=== PATIENT | female | born 1955 | race Hispanic/Latino ===

== ENCOUNTER 2019-05-15 14:45 | Observation (INO) | payer SELFPAY ==
--- NOTE | 2019-05-15 16:46 | ER ---
Nurse's Notes [facility] Name: Paulina Roy Age: 64 yrs Sex: Female : 1955 Arrival Date: 05/15/2019 Time: 14:48 Bed 18 Private MD: Diagnosis: Dizziness and giddiness;Other chest pain;Type 2 diabetes mellitus Presentation: 05/15 15:08 Presenting complaint: Sent by Dr. Bains for dizziness, dyspnea, chest pain, and abnormal hb EKG. Pt reports intermittent dizziness x 3 days. Transition of care: patient was not received from another setting of care. Onset of symptoms was May 13, 2019. Initial Sepsis Screen: Does the patient meet any 2 criteria? No. Patient's initial sepsis screen is negative. Does the patient have a suspected source of infection? No. Patient's initial sepsis screen is negative. Care prior to arrival: None. 15:08 Method Of Arrival: Ambulatory hb 15:08 Acuity: PABLO 3 hb 17:51 Risk Assessment: Do you want to hurt yourself or someone else? Patient reports no mg2 desire to harm self or others. Historical: - Allergies: 15:11 No Known Allergies; hb - Home Meds: 15:11 glimepiride Oral [Active]; Xigduo XR oral oral [Active]; Hydrochlorothiazide Oral hb [Active]; Lisinopril Oral [Active]; - PMHx: 15:11 Diabetes - NIDDM; Hypertension; hb - PSHx: 15:11 None; hb - Immunization history:: Adult Immunizations up to date. - Social history:: Smoking status: Patient/guardian denies using tobacco. - Ebola Screening: : No symptoms or risks identified at this time. - Family history:: not pertinent. Screenin:50 Abuse screen: Denies threats or abuse. Denies injuries from another. Nutritional mg2 screening: No deficits noted. Tuberculosis screening: No symptoms or risk factors identified. Fall Risk IV access (20 points). Assessment: 17:49 General: Appears in no apparent distress. comfortable, Behavior is calm, cooperative. mg2 Pain: Complains of pain in chest Pain radiates to head, abdomen, right leg and left leg Pain currently is 2 out of 10 on a pain scale. Quality of pain is described as aching, Pain began gradually, Is intermittent. Neuro: Level of Consciousness is awake, alert, obeys commands, Oriented to person, place, time, situation. Cardiovascular: Capillary refill < 3 seconds Patient's skin is warm and dry. Cardiovascular: Reports chest pain. Respiratory: Airway is patent Respiratory effort is even, unlabored, Respiratory pattern is regular, symmetrical. GI: No signs and/or symptoms were reported involving the gastrointestinal system. : No signs and/or symptoms were reported regarding the genitourinary system. EENT: No signs and/or symptoms were reported regarding the EENT system. Derm: Skin is intact, is healthy with good turgor, Skin is pink, warm \T\ dry. normal. Musculoskeletal: Circulation, motion, and sensation intact. Capillary refill < 3 seconds. Vital Signs: 15:09 BP 94 / 65; Pulse 97; Resp 16; Temp 98.4(TE); Pulse Ox 97% on R/A; Weight 63.5 kg; hb Height 5 ft. 4 in. (162.56 cm); Pain 0/10; 17:30 BP 149 / 82; Pulse 96; Resp 18; Pulse Ox 100% 0 lpm ; mg2 18:18 BP 114 / 72; Pulse 99; Resp 18; Temp 98.4; Pulse Ox 100% on R/A; mg2 15:09 Body Mass Index 24.03 (63.50 kg, 162.56 cm) hb ED Course: 14:48 Patient arrived in ED. rg4 15:09 Triage completed. hb 15:09 Arm band placed on right wrist. hb 15:21 EKG completed in triage. Results shown to MD. hb 16:13 Sen Francisco MD is Attending Physician. anya 16:28 Rainer Merino, AURELIANO is Primary Nurse. mg2 16:43 Soumya Quintanilla MD is Hospitalizing Provider. anya 17:02 XRAY Chest (1 view) In Process Unspecified. EDMS 17:51 Patient has correct armband on for positive identification. insurance office supervisor on. Pulse mg2 ox on. NIBP on. Door closed. Warm blanket given. 17:51 No provider procedures requiring assistance completed. Inserted saline lock: 20 gauge mg2 in right forearm, using aseptic technique. Blood collected. 17:57 Patient admitted, IV remains in place. mg2 Administered Medications: 16:54 Drug: Pepcid 20 mg Route: IVP; Site: right forearm; mg2 17:25 Follow up: Response: No adverse reaction mg2 18:00 Follow up: Response: No adverse reaction; Marked relief of symptoms mg2 18:35 Not Given (patient already in the floor): NS 0.9% 1000 ml IV at 1 bolus Per protocol; mg2 1000 mL bolus 18:35 Not Given (patient already in the floor): Insulin Regular Human 10 units IVP once mg2 18:35 Not Given (patient already in the floor): NS 0.9% 1000 ml IV at 125 ml/hr continuous mg2 Outcome: 16:44 Decision to Hospitalize by Provider. anya 18:19 Admitted to Med/surg accompanied by tech, via wheelchair, room 225, with chart, Report mg2 called to AURELIANO Calvo 18:19 Condition: stable 18:19 Instructed on the need for admit, Demonstrated understanding of instructions. 18:36 Patient left the ED. mg2 Signatures: Dispatcher [employer] EDSen Wood MD MD cha Baxter, Heather, Bree Jones RN rg4 Rainer Merino RN RN mg2 Corrections: (The following items were deleted from the chart) 18:19 18:10 BP 149 / 82; Pulse 96bpm; Resp 18bpm; Pulse Ox 100% 0 lpm; mg2 mg2
--- NOTE | 2019-05-15 16:46 | EDPHYS ---
Physician Documentation [facility] Name: Paulina Roy Age: 64 yrs Sex: Female : 1955 Arrival Date: 05/15/2019 Time: 14:48 Bed 18 Private MD: LYNDSEY Physician Sen Francisco HPI: 05/15 16:40 This 64 yrs old Female presents to ER via Ambulatory with complaints of anya Dizziness and chest pain. 16:40 The patient presents with dizziness. Modifying factors: The symptoms are alleviated by anya nothing, the symptoms are aggravated by nothing. Historical: - Allergies: 15:11 No Known Allergies; hb - Home Meds: 15:11 glimepiride Oral [Active]; Xigduo XR oral oral [Active]; Hydrochlorothiazide Oral hb [Active]; Lisinopril Oral [Active]; - PMHx: 15:11 Diabetes - NIDDM; Hypertension; hb - PSHx: 15:11 None; hb - Immunization history:: Adult Immunizations up to date. - Social history:: Smoking status: Patient/guardian denies using tobacco. - Ebola Screening: : No symptoms or risks identified at this time. - Family history:: not pertinent. ROS: 16:40 Constitutional: Negative for fever, chills, and weight loss, Eyes: Negative for injury, anya pain, redness, and discharge, ENT: Negative for injury, pain, and discharge, Neck: Negative for injury, pain, and swelling, Respiratory: Negative for shortness of breath, cough, wheezing, and pleuritic chest pain, Abdomen/GI: Negative for abdominal pain, nausea, vomiting, diarrhea, and constipation, Back: Negative for injury and pain, : Negative for injury, bleeding, discharge, and swelling, MS/Extremity: Negative for injury and deformity, Skin: Negative for injury, rash, and discoloration, Neuro: Negative for headache, weakness, numbness, tingling, and seizure, Psych: Negative for depression, anxiety, suicide ideation, homicidal ideation, and hallucinations, Allergy/Immunology: Negative for hives, rash, and allergies, Endocrine: Negative for neck swelling, polydipsia, polyuria, polyphagia, and marked weight changes, Hematologic/Lymphatic: Negative for swollen nodes, abnormal bleeding, and unusual bruising. 16:40 Cardiovascular: Positive for chest pain, of the chest. 16:40 Neuro: Positive for dizziness. Exam: 16:40 Constitutional: This is a well developed, well nourished patient who is awake, alert, anya and in no acute distress. Head/Face: Normocephalic, atraumatic. Eyes: Pupils equal round and reactive to light, extra-ocular motions intact. Lids and lashes normal. Conjunctiva and sclera are non-icteric and not injected. Cornea within normal limits. Periorbital areas with no swelling, redness, or edema. ENT: Nares patent. No nasal discharge, no septal abnormalities noted. Tympanic membranes are normal and external auditory canals are clear. Oropharynx with no redness, swelling, or masses, exudates, or evidence of obstruction, uvula midline. Mucous membranes moist. Neck: Trachea midline, no thyromegaly or masses palpated, and no cervical lymphadenopathy. Supple, full range of motion without nuchal rigidity, or vertebral point tenderness. No Meningismus. Chest/axilla: Normal chest wall appearance and motion. Nontender with no deformity. No lesions are appreciated. Cardiovascular: Regular rate and rhythm with a normal S1 and S2. No gallops, murmurs, or rubs. Normal PMI, no JVD. No pulse deficits. Respiratory: Lungs have equal breath sounds bilaterally, clear to auscultation and percussion. No rales, rhonchi or wheezes noted. No increased work of breathing, no retractions or nasal flaring. Abdomen/GI: Soft, non-tender, with normal bowel sounds. No distension or tympany. No guarding or rebound. No evidence of tenderness throughout. Back: No spinal tenderness. No costovertebral tenderness. Full range of motion. Female : Normal external genitalia. Skin: Warm, dry with normal turgor. Normal color with no rashes, no lesions, and no evidence of cellulitis. MS/ Extremity: Pulses equal, no cyanosis. Neurovascular intact. Full, normal range of motion. Neuro: Awake and alert, GCS 15, oriented to person, place, time, and situation. Cranial nerves II-XII grossly intact. Motor strength 5/5 in all extremities. Sensory grossly intact. Cerebellar exam normal. Normal gait. Psych: Awake, alert, with orientation to person, place and time. Behavior, mood, and affect are within normal limits. 16:40 Musculoskeletal/extremity: DVT Exam: No signs of deep vein thrombosis. no pain, no swelling, no tenderness, negative Homans' sign noted on exam, no appreciated bluish discoloration, no erythema, no increased warmth. Vital Signs: 15:09 BP 94 / 65; Pulse 97; Resp 16; Temp 98.4(TE); Pulse Ox 97% on R/A; Weight 63.5 kg; hb Height 5 ft. 4 in. (162.56 cm); Pain 0/10; 17:30 BP 149 / 82; Pulse 96; Resp 18; Pulse Ox 100% 0 lpm ; mg2 18:18 BP 114 / 72; Pulse 99; Resp 18; Temp 98.4; Pulse Ox 100% on R/A; mg2 15:09 Body Mass Index 24.03 (63.50 kg, 162.56 cm) hb MDM: 16:13 Patient medically screened. [facility] 16:42 Data reviewed: vital signs, nurses notes, lab test result(s), EKG, radiologic studies, anya plain films. 05/15 16:31 Order name: Basic Metabolic Panel; Complete Time: 18:31 mg2 05/15 16:31 Order name: CBC with Diff; Complete Time: 17:52 mg2 05/15 16:31 Order name: LFT's; Complete Time: 18:31 mg2 05/15 16:31 Order name: Magnesium; Complete Time: 18:31 mg2 05/15 16:31 Order name: NT PRO-BNP; Complete Time: 18:31 mg2 05/15 16:31 Order name: PT-INR; Complete Time: 17:52 mg2 05/15 16:31 Order name: Troponin (emerg Dept Use Only); Complete Time: 18:31 mg2 05/15 16:31 Order name: XRAY Chest (1 view) mg2 05/15 16:40 Order name: Lipase; Complete Time: 17:52 anya 05/15 16:44 Order name: Urine Dipstick--Ancillary (enter results); Complete Time: 17:52 em1 05/15 16:31 Order name: EKG; Complete Time: 16:33 mg2 05/15 16:31 Order name: Cardiac monitoring; Complete Time: 16:34 mg2 05/15 16:31 Order name: EKG - Nurse/Tech; Complete Time: 16:34 mg2 05/15 16:31 Order name: IV Saline Lock; Complete Time: 16:44 mg2 05/15 16:31 Order name: Labs collected and sent; Complete Time: 16:44 mg2 05/15 16:31 Order name: O2 Per Protocol; Complete Time: 16:34 mg2 05/15 16:31 Order name: O2 Sat Monitoring; Complete Time: 16:34 mg2 05/15 16:40 Order name: Urine Dipstick-Ancillary (obtain specimen); Complete Time: 16:44 anya Administered Medications: 16:54 Drug: Pepcid 20 mg Route: IVP; Site: right forearm; mg2 17:25 Follow up: Response: No adverse reaction mg2 18:00 Follow up: Response: No adverse reaction; Marked relief of symptoms mg2 18:35 Not Given (patient already in the floor): NS 0.9% 1000 ml IV at 1 bolus Per protocol; mg2 1000 mL bolus 18:35 Not Given (patient already in the floor): Insulin Regular Human 10 units IVP once mg2 18:35 Not Given (patient already in the floor): NS 0.9% 1000 ml IV at 125 ml/hr continuous mg2 Disposition: 05/15/19 16:44 Hospitalization ordered by Soumya Quintanilla for Observation. Preliminary diagnosis are Dizziness and giddiness, Other chest pain, Type 2 diabetes mellitus. - Bed requested for Telemetry/MedSurg (observation). - Status is Observation. mg2 - Condition is Fair. - Problem is new. - Symptoms have improved. UTI on Admission? No Signatures: Dispatcher [employer] EDLA Sen Francisco MD MD cha Martinez, Eric em1 Ayde Daniel RN RN Rainer Merino RN RN mg2 Corrections: (The following items were deleted from the chart) 17:47 16:44 Hospitalization Ordered by Soumya Quintanilla MD for Observation. Preliminary diagnosis em1 is Dizziness and giddiness; Other chest pain; Type 2 diabetes mellitus. Bed requested for Telemetry/MedSurg (observation). Status is Observation. Condition is Fair. Problem is new. Symptoms have improved. UTI on Admission? No. anya 18:36 17:47 05/15/2019 16:44 Hospitalization Ordered by Soumya Quintanilla MD for Observation. mg2 Preliminary diagnosis is Dizziness and giddiness; Other chest pain; Type 2 diabetes mellitus. Bed requested for Telemetry/MedSurg (observation). Status is Observation. Condition is Fair. Problem is new. Symptoms have improved. UTI on Admission? No. em1
[2019-05-15] MEDS ORDERED: FAMOTIDINE 20 MG/2 ML VIAL IV ONE (16:47)
[2019-05-15 16:54] LABS: Absolute Lymphocytes (CBC) 1.3 K/uL (0.7-4.9); Basophils % 0.4 % (0-1.3); Lymphocytes % 15.5 % (15.3-44.8); MPV 8.6 fL (7.6-11.3); RBC Red Blood Cell Count 4.61 M/uL (3.86-4.86)
[2019-05-15 17:06] LABS: Protime INR 0.98
--- NOTE | 2019-05-15 17:07 | RAD REPORT ---
EXAM DESCRIPTION: RAD - Chest Single View - 05/15/2019 4:47 pm CLINICAL HISTORY: Chest pain COMPARISON: None. TECHNIQUE: AP portable chest image was obtained 1642 hours . FINDINGS: Lungs are clear. Heart and vasculature are normal. No measurable pleural effusion and no p neumothorax. No acute bony abnormality seen. No acute aortic findings suspected. IMPRESSION: No acute cardiopulmonary process.
[2019-05-15 17:14] LABS: Urine Blood NEGATIVE (NEG); Urine Glucose 2+ (NEG); Urine Protein NEGATIVE (NEG)
[2019-05-15 17:20] LABS: ALT/SGPT 20 U/L (12-78); AST/SGOT 10 U/L (15-37); Albumin 3.8 g/dL (3.4-5.0); Alkaline Phosphatase 85 U/L (45-117); BUN Blood Urea Nitrogen 44 mg/dL (7-18); Bicarbonate 18 mmol/L (21-32); Bilirubin Direct < 0.1 mg/dL (0-0.2); Bilirubin Total 0.5 mg/dL (0.2-1.0); Glucose Level 338 mg/dL (74-106); Magnesium 2.5 mg/dL (1.8-2.4); NT PRO-BNP 406 pg/mL (<125); Potassium 5.1 mmol/L (3.5-5.1); Protein, Total 8.7 g/dL (6.4-8.2); Sodium Level 128 mmol/L (136-145); Troponin (Emerg Dept Use Only) < 0.02 ng/mL (0.0-0.045)
[2019-05-15] MEDS ORDERED: ASPIRIN 81 MG CHEWABLE TABLET PO ONE (17:33)
--- NOTE | 2019-05-15 17:34 | EKG ---
Test Date: 2019-05-15 Test Time: 15:17:18 Door Glass Installer: JAQUAN MEASUREMENT RESULTS: Intervals: Rate: 102 WA: 154 QRSD: 146 QT: 396 QTc: 516 [place]: P: 56 WA: 154 QRS: -37 T: 120 INTERPRETIVE STATEMENTS: Sinus tachycardia Left axis deviation Left bundle branch block Abnormal ECG No previous ECG available for comparison Electronically Signed On 05-15-19 17:33:39 CDT by Amado Marie
--- NOTE | 2019-05-15 18:16 | P.HP ---
Certification for Inpatient Patient admitted to: Observation With expected LOS: <2 Midnights Practitioner: I am a practitioner with admitting privileges, knowledge of patient current condition, hospital course, and medical plan of care. Services: Services provided to patient in accordance with Admission requirements found in Title 42 Section 412.3 of the Code of Federal Regulations Patient History Date of Service: 05/15/19 Primary Care Provider: Dr. Zee Reason for admission: Chest pain History of Present Illness: This is a 64-year-old female with past medical history of hypertension, hyperlipidemia, anxiety and diabetes who presented with chest pain. Per patient , chest pain has been intermittent, for 3 days and has been progressively worsening. Now she has pain that starts in substernal area goes up to her face and down to her knees. She describes it as 5/10 pain. This pain is associated with dizziness, nausea and shortness of breath. Her family history is pertinent for a [place] in her brother at age 58. She was seen in her primary care physician's office and was told to come to the ER from there. In the ER, her blood pressure was 94/65, heart rate of 97, respirations of 16, afebrile at 98.4 and satting 97% on room air. Her BMI is 24.03. Her labs were pending but when they came back there were remarkable for sodium of 128 and blood sugars of 300+. Her lipase was also elevated in the 400s. In the ER, she was given Pepcid. Aspirin 325 mg was also ordered by me and was given to the patient along with metoprolol. At the time of my exam, in the ER, patient was alert oriented x3, in no acute distress. Her blood pressure was elevated as was her heart rate into the 130s. Allergies No Known Allergies Allergy (Unverified 05/15/19 18:06) Home medications list reviewed: Yes - Past Medical/Surgical History Diabetic: Yes -: Hypertension -: Hyperlipidemia -: Diabetes mellitus, type 2 - Family History Brother -: Heart disease ([place] at age 58, leading to ) Review of Systems 10-point ROS is otherwise unremarkable Physical Examination - Physical Exam General: Alert, In no apparent distress, Oriented x3 HEENT: Atraumatic, PERRLA, Mucous membr. moist/pink, EOMI, Sclerae nonicteric Neck: Supple, 2+ carotid pulse no bruit, No LAD, Without JVD or thyroid abnormality Respiratory: Clear to auscultation bilaterally, Normal air movement Cardiovascular: Regular rate/rhythm, Normal S1 S2 Gastrointestinal: Normal bowel sounds, No tenderness Musculoskeletal: No tenderness Integumentary: No rashes Neurological: Normal gait, Normal speech, Normal strength at 5/5 x4 extr, Normal tone, Normal affect Lymphatics: No axilla or inguinal lymphadenopathy - Studies Laboratory Data (last 24 hrs) 05/15/19 16:40: Lipase 452 H 05/15/19 16:40: PT 11.6, INR 0.98 05/15/19 16:40: WBC 8.3, Hgb 13.5, Hct 41.0, Plt Count 365 05/15/19 16:40: Sodium 128 L, Potassium 5.1, BUN 44 H, Creatinine 1.22, Glucose 338 H, Magnesium 2.5 H, Total Bilirubin 0.5, AST 10 L, ALT 20, Alkaline Phosphatase 85 Assessment and Plan - Problems (Diagnosis) (1) Chest pain Current Visit: Yes Status: Acute Plan: Heart score:3 Risk factors: Hypertension, hyperlipidemia, diabetes, family history of brother with [place] at age 58, age, gender -troponin negative x1, trend troponin -chest pain guidelines: Aspirin, Plavix, beta-laura, statin, lisinopril. -echo ordered, [place] -cardiology consulted, awaiting recommendations -morphine as needed for pain -nitro sublingual as needed Qualifiers: Chest pain type: unspecified Qualified Code(s): R07.9 - Chest pain, unspecified (2) Hyponatremia Current Visit: Yes Status: Acute Plan: Likely secondary to dehydration. -IV fluids, maintenance dose -monitor via labs (3) Hypertension Current Visit: No Status: Chronic Plan: We will resume home medications once reconciled Qualifiers: Hypertension type: essential hypertension Qualified Code(s): I10 - Essential (primary) hypertension (4) Hyperlipidemia Current Visit: No Status: Chronic Plan: Continue statin Qualifiers: Hyperlipidemia type: unspecified Qualified Code(s): E78.5 - Hyperlipidemia , unspecified (5) Diabetes mellitus Current Visit: No Status: Chronic Plan: Accu-Cheks and mild sliding scale insulin. Will monitor and adjust as needed Qualifiers: Diabetes mellitus type: type 2 Diabetes mellitus senior living insulin use: without senior living use Diabetes mellitus complication status: with hyperglycemia Qualified Code(s): E11.65 - Type 2 diabetes mellitus with hyperglycemia (6) Elevated lipase Current Visit: Yes Status: Acute Plan: Lipase in the 400s, patient not really complaining of any abdominal pain. Will trend lipase and if it continues to elevate, will get imaging. Doubt pancreatitis at this time but will continue to monitor. - Plan DVT prophylaxis: Aspirin/Plavix GI prophylaxis: Pepcid Diet: Heart healthy, NPO after midnight Disposition: Admit to floor with tele. Pending cardiology evaluation. Anticipate discharge home in the next 24 hr if cardiology evaluation is negative and clinical improvement. Discharge Plan: Home Plan to discharge in: 24 Hours - Advance Directives Does patient have a Living Will: No Does patient have a Durable POA for Healthcare: No Time Spent Managing Pts Care (In Minutes): 55
[2019-05-15] MEDS ORDERED: METOPROLOL TAR 50 MG TAB ONE (18:22)
[2019-05-15] MEDS ORDERED: ASPIRIN 81 MG CHEWABLE TABLET ONE (18:22)
[2019-05-15] MEDS: METOPROLOL TAR 50 MG TAB PO SCH (18:25)
[2019-05-15] MEDS ORDERED: MORPHINE 2 MG/ML SYR IV PRN (18:35)
[2019-05-15] MEDS ORDERED: ONDANSETRON 4 MG/2 ML VIAL IV PRN (18:35)
[2019-05-15] MEDS ORDERED: NITROGLYCERIN 0.4 MG/TAB SL PRN (18:35)
[2019-05-15] MEDS: NA CHLORIDE 0.9% 1,000 ML IV SCH ×2 (19:00→21:45)
[2019-05-15] MEDS ORDERED: GLUCAGON 1 MG/VIAL IM PRN (20:10)
[2019-05-15] MEDS ORDERED: D50W 25 GM/50 ML SYRINGE IV PRN (20:10)
[2019-05-15] MEDS: ENOXAPARIN 40 MG/0.4 ML SQ SCH (20:37)
[2019-05-15] MEDS: INSULIN -REGULAR HUMAN 50 UNIT/0.5 ML ML SQ SCH (20:38)
[2019-05-15] MEDS ORDERED: INSULIN -REGULAR HUMAN 50 UNIT/0.5 ML ML IV ONE (21:00)
[2019-05-15] MEDS ORDERED: ATORVASTATIN 40 MG TAB PO SCH (21:00)
[2019-05-15] MEDS ORDERED: NA CHLORIDE 0.9% 1,000 ML IV ONE (21:00)
[2019-05-15 23:09] LABS: Urine Appearance CLEAR; Urine Bilirubin NEGATIVE (NEG); Urine Blood NEGATIVE (NEG); Urine Color YELLOW; Urine Glucose 3+ (NEG); Urine Protein NEGATIVE (NEG); Urine Specific Gravity 1.025 (1.005-1.030); Urine Urobilinogen 0.2 mg/dL (0.2-1.0)
[2019-05-15 23:10] LABS: Urine Microscopic Reflex ORDER UMIC
[2019-05-15 23:16] VITALS: BMI 24.0
[2019-05-16 00:16] LABS: Urine Bacteria LOADED /HPF (<20); Urine Culture Reflex Order REFLEXED; Urine RBC NONE SEEN /HPF (NONE SEEN)
[2019-05-16 06:41] LABS: Absolute Lymphocytes (CBC) 1.4 K/uL (0.7-4.9); Basophils % 0.5 % (0-1.3); Hematocrit 38.1 % (36.0-45.0); Lymphocytes % 19.6 % (15.3-44.8); MPV 8.4 fL (7.6-11.3); RBC Red Blood Cell Count 4.31 M/uL (3.86-4.86)
[2019-05-16 06:48] LABS: ALT/SGPT 13 U/L (12-78); AST/SGOT 10 U/L (15-37); Albumin 3.3 g/dL (3.4-5.0); Alkaline Phosphatase 78 U/L (45-117); BUN Blood Urea Nitrogen 37 mg/dL (7-18); Bicarbonate 21 mmol/L (21-32); Bilirubin Total 0.4 mg/dL (0.2-1.0); Glucose Level 208 mg/dL (74-106); HDL Cholesterol 66 mg/dL (40-60); Lipase 374 U/L (73-393); Phosphorus 3.7 mg/dL (2.5-4.9); Potassium 4.9 mmol/L (3.5-5.1); Protein, Total 7.7 g/dL (6.4-8.2); Sodium Level 135 mmol/L (136-145)
[2019-05-16 07:17] LABS: LDL, Direct 277 mg/dL (100-129)
[2019-05-16] MEDS: INSULIN -REGULAR HUMAN 50 UNIT/0.5 ML ML SQ SCH ×4 (07:30→21:05)
[2019-05-16] MEDS: LISINOPRIL 10 MG TAB PO SCH (09:00)
[2019-05-16] MEDS: CLOPIDOGREL 75 MG TABLET PO SCH (09:00)
[2019-05-16] MEDS: ASPIRIN 81 MG CHEWABLE TABLET PO SCH (09:00)
[2019-05-16] MEDS: METOPROLOL TAR 50 MG TAB PO SCH ×3 (09:00→21:05)
[2019-05-16] MEDS: NA CHLORIDE 0.9% 1,000 ML IV SCH ×2 (10:21→22:49)
--- NOTE | 2019-05-16 10:32 | ECHO ---
HEIGHT: 5 ft 4 in WEIGHT: 140 lb 0 oz DATE OF STUDY: 05/16/[address]: Soumya Quintanilla MD 2-DIMENSIONAL: YES M.MODE: YES DOPPLER: YES COLOR FLOW: YES TDS: NO PORTABLE: NO DEFINITY: NO BUBBLE STUDY: NO DIAGNOSIS: CHEST PAIN CARDIAC HISTORY: CATHERIZATION: NO SURGERY: NO PROSTHETIC VALVE: NO PACEMAKER: NO MEASUREMENTS (cm) DIASTOLIC (NORMALS) SYSTOLIC (NORMALS) IVSd 1.0 (0.6-1.2) LA Diam 3.6 (1.9-4.0) LVEF 63% LVIDd 3.2 (3.5-5.7) LVIDs 2.2 (2.0-3.5) %FS 33% LVPWd 1.1 (0.6-1.2) Ao Diam 2.5 (2.0-3.7) 2 DIMENSIONAL ASSESSMENT: RIGHT ATRIUM: NORMAL LEFT ATRIUM: NORMAL RIGHT VENTRICLE: NORMAL LEFT VENTRICLE: NORMAL TRICUSPID VALVE: NORMAL MITRAL VALVE: NORMAL PULMONIC VALVE: NORMAL AORTIC VALVE: NORMAL PERICARDIAL EFFUSION: NONE AORTIC ROOT: NORMAL LEFT VENTRICULAR WALL MOTION: NORMAL DOPPLER/COLOR FLOW: MILD MITRAL REGURGITATION. COMMENTS: NORMAL 2D ECHOCARDIOGRAM. MILD MITRAL REGURGITATION. TECHNOLOGIST: Eduardo ZENDEJAS
[2019-05-16] MEDS: clonazePAM 0.5 MG TAB PO PRN ×2 (11:30→21:09)
[2019-05-16] MEDS: ENOXAPARIN 40 MG/0.4 ML SQ SCH (11:30)
--- NOTE | 2019-05-16 13:13 | P.PN ---
Subjective Date of Service: 05/16/19 Primary Care Provider: Dr. Zee Chief Complaint: Chest pain Subjective: No new changes Patient seen and examined at bedside. Family at bedside. chart reviewed and case discussed with nursing staff and Dr. Arana. Patient laying in bed comfortable, no chest pain at this time. No acute events noted overnight. Review of Systems 10-point ROS is otherwise unremarkable Physical Examination - Vital Signs Temperature: 98.1 F Blood Pressure: 104/60 Pulse: 96 Respirations: 15 Pulse Ox (%): 93 - Physical Exam General: Alert, In no apparent distress, Oriented x3 HEENT: Atraumatic, PERRLA, EOMI Neck: Supple, JVD not distended Respiratory: Clear to auscultation bilaterally, Normal air movement Cardiovascular: Regular rate/rhythm, Normal S1 S2 Gastrointestinal: Normal bowel sounds, No tenderness Musculoskeletal: No tenderness Integumentary: No rashes Neurological: Normal speech, Normal tone, Normal affect Lymphatics: No axilla or inguinal lymphadenopathy - Studies Laboratory Data (last 24 hrs) 05/15/19 16:40: Lipase 452 H 05/15/19 16:40: PT 11.6, INR 0.98 05/15/19 16:40: WBC 8.3, Hgb 13.5, Hct 41.0, Plt Count 365 05/15/19 16:40: Sodium 128 L, Potassium 5.1, BUN 44 H, Creatinine 1.22, Glucose 338 H, Magnesium 2.5 H, Total Bilirubin 0.5, AST 10 L, ALT 20, Alkaline Phosphatase 85 Assessment And Plan - Current Problems (Diagnosis) (1) Chest pain Current Visit: Yes Status: Acute Plan: Heart score:3 Risk factors: Hypertension, hyperlipidemia, diabetes, family history of brother with [place] at age 58, age, gender -troponin negative x3 -chest pain guidelines: Aspirin, Plavix, beta-laura, statin, lisinopril. -echo normal, with 65% EF -cardiology consulted, recommendations appreciated. -morphine as needed for pain -nitro sublingual as needed -Stress test ordered. Unforunately, unable to be done today. Therefore stress test pending tomorrow. Qualifiers: Chest pain type: unspecified Qualified Code(s): R07.9 - Chest pain, unspecified (2) Hyponatremia Current Visit: Yes Status: Acute Plan: Likely secondary to dehydration. Improved -IV fluids, maintenance dose -monitor via labs (3) Hypertension Current Visit: No Status: Chronic Plan: We will resume home medications once reconciled Qualifiers: Hypertension type: essential hypertension Qualified Code(s): I10 - Essential (primary) hypertension (4) Hyperlipidemia Current Visit: No Status: Chronic Plan: Continue statin, dosage increased. Qualifiers: Hyperlipidemia type: unspecified Qualified Code(s): E78.5 - Hyperlipidemia , unspecified (5) Diabetes mellitus Current Visit: No Status: Chronic Plan: Accu-Cheks and mild sliding scale insulin. Will monitor and adjust as needed Needs stricter control. Qualifiers: Diabetes mellitus type: type 2 Diabetes mellitus exterminator termite insulin use: without jail use Diabetes mellitus complication status: with hyperglycemia Qualified Code(s): E11.65 - Type 2 diabetes mellitus with hyperglycemia (6) Elevated lipase Current Visit: Yes Status: Resolved Plan: Lipase in the 400s, patient not really complaining of any abdominal pain. Repeat lipase within normal limits. Doubt pancreatitis at this time but will continue to monitor. (7) Bundle branch block, left Current Visit: Yes Status: Acute - Plan DVT prophylaxis: Aspirin/Plavix GI prophylaxis: Pepcid Diet: Heart healthy, NPO after midnight Disposition: Pending stress test tomorrow. Anticipate discharge home in the next 24 hr if cardiology evaluation is negative and clinical improvement. Discharge Plan: Home Plan to discharge in: 24 Hours
--- NOTE | 2019-05-16 14:01 | CON ---
Chief Complaint: Spells of chest pain, shortness of breath. She has been having them off and on for 3 days. They last 15 or 30 minutes, then go away. She has had several while in the hospital. Ther e has been no arrhythmia. She is in normal sinus rhythm since she has been here, all of her cardiac enzymes look normal, and her electrocardiogram shows sinus tachycardia and left bundle-branch block. I have no old EKGs for comparison. Patient is not aware of having any heart trouble. Never had an EKG before or other heart testing. There is a history of diabetes and hypertension, but no history o f dyslipidemia, vascular disease. Allergies: SHE HAS NO ALLERGIES. Outpatient Medications: Glimepiride, Xigduo which is dapagliflozin and metformin, and lisinopril and hydrochlorothiazide. Physical Examination: Vital Signs: 5 feet 4 inches, 140 pounds. HEENT: Normal. Lungs: Clear. Cardiac: Within normal limits. Abdomen: Soft. Extremities: Normal. No cyanosis, clubbing, or edema. No ulcers or evidence of venous stasis. Laboratory Data: She has an elevated total cholesterol, it is 418. Her direct LDL is 277. Assessment And Plan: So, she is a patient with diabetes and severe dyslipidemia, probably a familial hypercholesterolemic patient. Recommend she be placed on the highest dose of statins that we can manage. So, we will do an echocar diogram and stress test. MONET Voice ID: [id number] Report ID: [id number]
[2019-05-16] MEDS ORDERED: ATORVASTATIN 80 MG TAB PO SCH (21:00)
[2019-05-17 05:39] LABS: Absolute Lymphocytes (CBC) 1.8 K/uL (0.7-4.9); Basophils % 0.5 % (0-1.3); Hematocrit 37.7 % (36.0-45.0); Lymphocytes % 24.4 % (15.3-44.8); MPV 8.3 fL (7.6-11.3); RBC Red Blood Cell Count 4.25 M/uL (3.86-4.86)
[2019-05-17 05:57] LABS: Albumin 3.3 g/dL (3.4-5.0); Bilirubin Total 0.5 mg/dL (0.2-1.0); Potassium 4.6 mmol/L (3.5-5.1); Protein, Total 7.5 g/dL (6.4-8.2)
[2019-05-17] MEDS: INSULIN -REGULAR HUMAN 50 UNIT/0.5 ML ML SQ SCH ×2 (07:30→13:07)
[2019-05-17] MEDS ORDERED: REGADENOSON 0.4 MG/5 ML SYR IV ONE (08:11)
[2019-05-17] MEDS: LISINOPRIL 10 MG TAB PO SCH (09:00)
[2019-05-17] MEDS: ASPIRIN 81 MG CHEWABLE TABLET PO SCH (10:11)
[2019-05-17] MEDS: CLOPIDOGREL 75 MG TABLET PO SCH (10:12)
[2019-05-17] MEDS: ENOXAPARIN 40 MG/0.4 ML SQ SCH (10:13)
[2019-05-17] MEDS: METOPROLOL TAR 50 MG TAB PO SCH (10:15)
[2019-05-17] MEDS: NA CHLORIDE 0.9% 1,000 ML IV SCH (11:00)
--- NOTE | 2019-05-17 11:01 | RAD REPORT ---
EXAM DESCRIPTION: NM - Rest Stress Cardiac Imaging - 05/17/2019 9:50 am CLINICAL HISTORY: Chest pain. COMPARISON: None. TECHNIQUE: The patient was administered approximately 10mCi of Tc 99m Sestamibi prior to resting SPE CT imaging of the heart. The patient was then administered approximately 30 mCi of Tc 99m Sestamibi f ollowing exercise or pharmacologic stress. Multiplanar SPECT images were reviewed. FINDINGS: There is uniformity of radiotracer uptake involving the entire left ventricular myocardiu m on rest and stress images. The left ventricular ejection fraction equals 69% IMPRESSION: Negative for a myocardial perfusion defect
--- NOTE | 2019-05-17 12:00 | TREADPHA ---
DX: CHEST PAIN Date of Study: 05/17/2019 Ht: 5 4 Wt: 140 lb 0 oz Consulting Physician: MANISH MEDICATIONS: ASPIRIN, LIPITOR, KLONOPIN, PLAVIX, LOVENOX, NOVOLIN-R, GLUCAGEN HISTORY: NON INSULIN DEPENDENT DIABETES MELLITUS AND HYPERTENSION. PHYSICIAL EXAMINATION: RESTING B.P.: 134/89 RESTING H.R.: 95 RESTING EKG: SINUS RHYTHM PROTOCOL: LEXISCAN EXERCISE TIME: 3:30 B.P. AT PEAK STRESS: 94/69 IMPRESSION: LEXISCAN STRESS TEST PERFORMED PER PROTOCOL. CARDIOLITE INJECTED PER PROTOCOL. NO SUPRAVENTRICULAR TACHYCARDIA OR VENTRICULAR TACHYCARDIA. NO ARRYTHMIAS. PATIENT DENIED CHEST PAIN. POST PROCEDURE BLOOD PRESSURE 121/69. PATIENT TOLERATED WELL.
[2019-05-17 12:56] VITALS: BP 137/65; TEMP 98.4
[2019-05-17 13:51] VITALS: O2SAT 98
--- NOTE | 2019-05-17 15:27 | P.SSS ---
Patient History Date of Service: 05/17/19 Primary Care Provider: Dr. Zee Reason for admission: Chest pain History of Present Illness: This is a 64-year-old female with past medical history of hypertension, hyperlipidemia, anxiety and diabetes who presented with chest pain. Per patient , chest pain has been intermittent, for 3 days and has been progressively worsening. Now she has pain that starts in substernal area goes up to her face and down to her knees. She describes it as 5/10 pain. This pain is associated with dizziness, nausea and shortness of breath. Her family history is pertinent for a HI in her brother at age 58. She was seen in her primary care physician's office and was told to come to the ER from there. In the ER, her blood pressure was 94/65, heart rate of 97, respirations of 16, afebrile at 98.4 and satting 97% on room air. Her BMI is 24.03. Her labs were pending but when they came back there were remarkable for sodium of 128 and blood sugars of 300+. Her lipase was also elevated in the 400s. In the ER, she was given Pepcid. Aspirin 325 mg was also ordered by me and was given to the patient along with metoprolol. At the time of my exam, in the ER, patient was alert oriented x3, in no acute distress. Her blood pressure was elevated as was her heart rate into the 130s. Allergies No Known Allergies Allergy (Verified 05/15/19 20:32) Home medications list reviewed: Yes Home Medications: Dapagliflozin/Metformin HCl [Xigduo Xr 5 mg-1,000 mg Tablet] 1 tab PO BID Glimepiride 1 tab PO BID 05/15/19 Lisinopril/Hydrochlorothiazide [Lisinopril-Hctz 20-12.5 mg Tab] 1 tab PO DAILY 05/15/19 Aspirin Chewable [Aspirin Chewable*] 81 mg PO DAILY tab.chew 05/17/19 Atorvastatin Calcium [Lipitor] 80 mg PO BEDTIME #30 tab 05/17/19 clonazePAM [Klonopin*] 0.5 mg PO BID PRN #10 tab 05/17/19 - Past Medical/Surgical History Has patient received pneumonia vaccine in the past: No Diabetic: Yes -: Hypertension -: Hyperlipidemia -: Diabetes mellitus, type 2 - Family History Brother -: Heart disease (HI at age 58, leading to ) - Social History Smoking Status: Never smoker Alcohol use: No CD- Drugs: No Caffeine use: Yes Place of Residence: Home Review of Systems 10-point ROS is otherwise unremarkable Physical Examination - Vital Signs Temperature: 98.4 F Blood Pressure: 137/65 Pulse: 89 Respirations: 16 Pulse Ox (%): 98 - Physical Exam General: Alert, In no apparent distress, Oriented x3 HEENT: Atraumatic, PERRLA, Mucous membr. moist/pink, EOMI, Sclerae nonicteric Neck: Supple, 2+ carotid pulse no bruit, No LAD, Without JVD or thyroid abnormality Respiratory: Clear to auscultation bilaterally, Normal air movement Cardiovascular: Regular rate/rhythm, Normal S1 S2 Gastrointestinal: Normal bowel sounds, No tenderness Musculoskeletal: No tenderness Integumentary: No rashes Neurological: Normal gait, Normal speech, Normal strength at 5/5 x4 extr, Normal tone, Normal affect Lymphatics: No axilla or inguinal lymphadenopathy - Diagnosis (Problem(s)) (1) Chest pain Status: Acute Plan: Heart score:3 Risk factors: Hypertension, hyperlipidemia, diabetes, family history of brother with HI at age 58, age, gender -troponin negative x3 -chest pain guidelines: Aspirin, Plavix, beta-laura, statin, lisinopril. -echo normal, with 65% EF -Stress test negative. -cardiology consulted cleared for discharge. Qualifiers: Chest pain type: unspecified Qualified Code(s): R07.9 - Chest pain, unspecified (2) Hyponatremia Status: Resolved Plan: Likely secondary to dehydration. Resolved (3) Hypertension Status: Chronic Qualifiers: Hypertension type: essential hypertension Qualified Code(s): I10 - Essential (primary) hypertension (4) Hyperlipidemia Status: Chronic Qualifiers: Hyperlipidemia type: unspecified Qualified Code(s): E78.5 - Hyperlipidemia , unspecified (5) Diabetes mellitus Status: Chronic Qualifiers: Diabetes mellitus type: type 2 Diabetes mellitus chcf insulin use: without long term care phlebotomist use Diabetes mellitus complication status: with hyperglycemia Qualified Code(s): E11.65 - Type 2 diabetes mellitus with hyperglycemia (6) Elevated lipase Status: Resolved Plan: Lipase in the 400s, patient not really complaining of any abdominal pain. Repeat lipase within normal limits. Doubt pancreatitis at this time but will continue to monitor. (7) Bundle branch block, left Status: Acute - Disposition Discharge Date: 05/17/19 Disposition: ROUTINE DISCHARGE Condition: GOOD Consultations: Cardiology Patient Discharge Instructions: Please follow up with your primary care physician in 2-3 days. Please follow up with cardiology in 2 weeks. Please return to the Emergency room for worsening symtpoms. Diet: AHA Activity: Ad matias Time Spent Managing Pts Care (In Minutes): 55
--- NOTE | 2019-05-18 06:51 | PN ---
Date of Progress Note: 05/17/2019 Ms. Roy was admitted on 05/15/2019. Dr. Arana saw her on 05/16/2019 for hypertension, diabetes , severe dyslipidemia, chest pain. Today, 05/17/2019, patient has not had any further chest pain. H er echocardiogram on 05/16/2019 was normal. Today, a Lexiscan was done that was normal. I think pietro shook can go home on her previous medications at home, but I think she needs to have her blood glucose addressed and she needs to be on really high dose statin. She is to have close followup as an outpa tient regarding her high blood pressure, dyslipidemia, and diabetes. CASSANDRA/PHIL Voice ID: [id number] Report ID: [id number]
== END 2019-05-17 15:12 | disposition home or self-care (01) ==
LOC: ER 14:45 → ERHOLD 17:33 → 2ND 18:22
PROVIDERS: ADMIT Family Medicine; ATTEND Family Medicine
DX: R07.9 Chest pain, unspecified (principal); I10 Essential (primary) hypertension; E78.5 Hyperlipidemia, unspecified; F41.9 Anxiety disorder, unspecified; E11.9 Type 2 diabetes mellitus without complications; E87.1 Hypo-osmolality and hyponatremia; I44.7 Left bundle-branch block, unspecified
CPT/HCPCS: 36415; 71045; 78452; 80048; 80053; 80061; 80076; 81003; 81015; 82962; 83690; 83735; 83880; 84100; 84484; 85025; 85610; 87077; 87086; 87088; 87186; 93005; 93017; 93306; 94760; 96374; 99285; A9500; G0378; J1650; J2785; J7030

== ENCOUNTER 2019-05-20 12:39 | Emergency (ER) | payer SELFPAY ==
--- OUTSIDE RECORDS SUMMARY | 2019-05-20 12:41 | XMS REPORT ---
:1955 [facility] Address [address] [place] [address] Care Team Providers Name Role Phone Unavailable Unavailable Unavailable Problems This patient has no known problems. Allergies, Adverse Reactions, Alerts This patient has no known allergies or adverse reactions. Medications This patient has no known medications.
[2019-05-20] MEDS ORDERED: NA CHLORIDE 0.9% 1,000 ML ONE ×2 (13:05→13:59)
[2019-05-20 13:21] LABS: Absolute Lymphocytes (CBC) 1.2 K/uL (0.7-4.9); Basophils % 0.4 % (0-1.3); Hematocrit 35.5 % (36.0-45.0); Lymphocytes % 13.3 % (15.3-44.8); MPV 8.3 fL (7.6-11.3); RBC Red Blood Cell Count 4.01 M/uL (3.86-4.86)
[2019-05-20 13:37] LABS: ALT/SGPT 17 U/L (12-78); AST/SGOT 12 U/L (15-37); Albumin 3.2 g/dL (3.4-5.0); Alkaline Phosphatase 73 U/L (45-117); BUN Blood Urea Nitrogen 55 mg/dL (7-18); Bicarbonate 21 mmol/L (21-32); Bilirubin Direct 0.1 mg/dL (0-0.2); Bilirubin Total 0.5 mg/dL (0.2-1.0); Glucose Level 326 mg/dL (74-106); Lipase 461 U/L (73-393); Potassium 4.6 mmol/L (3.5-5.1); Protein, Total 7.1 g/dL (6.4-8.2); Sodium Level 133 mmol/L (136-145)
--- NOTE | 2019-05-20 16:00 | ER ---
Nurse's Notes [facility] Name: Paulina Roy Age: 64 yrs Sex: Female : 1955 Arrival Date: 05/20/2019 Time: 12:41 Bed 6 Private MD: Unknown, Unknown Diagnosis: Hyperglycemia, unspecified;Dehydration;Urinary tract infection, site not specified Presentation: 05/20 12:54 Presenting complaint: Child states: MALAISE AND HYPERGLYCEMIA x5 DAYS, JAIL bp NON-COMPLIANCE WITH MEDICATIONS. Transition of care: patient was not received from another setting of care. Onset of symptoms is unknown. Risk Assessment: Do you want to hurt yourself or someone else? Patient reports no desire to harm self or others. Initial Sepsis Screen: Does the patient meet any 2 criteria? No. Patient's initial sepsis screen is negative. Does the patient have a suspected source of infection? No. Patient's initial sepsis screen is negative. Care prior to arrival: None. 12:54 Method Of Arrival: Wheelchair bp 12:54 Acuity: PABLO 2 bp Triage Assessment: 12:58 General: Appears in no apparent distress. uncomfortable, ill, Behavior is. Pain: Denies bp pain. EENT: No deficits noted. Neuro: No deficits noted. Cardiovascular: No deficits noted. Respiratory: No deficits noted. GI: Reports anorexia. : No signs and/or symptoms were reported regarding the genitourinary system. Derm: No deficits noted. Musculoskeletal: No deficits noted. Historical: - Allergies: 12:58 No Known Allergies; bp - Home Meds: 12:58 glimepiride 2 mg oral tab 1 tab once daily [Active]; Xigduo XR 5-1,000 mg oral TBph bp [Active]; lisinopril-hydrochlorothiazide 20-12.5 mg oral tab 1 tab once daily [Active]; clonazepam 0.5 mg Oral tab 1 tab 2 times per day [Active]; lovastatin 20 mg Oral tab 1 tab once daily [Active]; atorvastatin 80 mg oral tab 1 tab once daily [Active]; aspirin 81 mg Oral chew 1 tab once daily [Active]; - PMHx: 12:58 Diabetes - NIDDM; Hypertension; High Cholesterol; bp - Immunization history:: Adult Immunizations up to date. - Social history:: Smoking status: Patient/guardian denies using tobacco. - Ebola Screening: : No symptoms or risks identified at this time. - Family history:: not pertinent. - Hospitalizations: : No recent hospitalization is reported. Screenin:00 Abuse screen: Denies threats or abuse. Denies injuries from another. Nutritional bp screening: No deficits noted. Tuberculosis screening: No symptoms or risk factors identified. Fall Risk None identified. Assessment: 13:00 General: SEE TRIAGE NOTE. bp 13:14 General: Appears in no apparent distress. slender, Behavior is cooperative, quiet. ae4 Pain: Denies pain. Neuro: Level of Consciousness is obeys commands, lethargic, Oriented to person, place, situation. Cardiovascular: skin is cool and dry. Respiratory: Airway is patent Respiratory effort is even, unlabored, shallow, Respiratory pattern is regular, symmetrical. 13:25 Respiratory: Breath sounds are clear bilaterally. GI: Abdomen is round Bowel sounds ae4 diminished in right upper quadrant, left upper quadrant, right lower quadrant and left lower quadrant. : Reports Patient states she urinated right before coming to the ER. Patient informed that a urine sample is needed and to let nurses know when she feels the need to urinate. EENT: Oral mucosa is moist. Derm: Skin is pale. Musculoskeletal: Reports Generalized weakness. Patient states she just wants to "sleep". 13:53 Reassessment: Patient appears in no apparent distress at this time. Patient is lying in ae4 bed supine, with eyes closed, awakens easily to voice. Daughters at bedside. 14:22 Reassessment: Patient and/or family updated on plan of care and expected duration. Pain ae4 level reassessed. Patient is easily awakened, states she does not need to urinate as of yet. States she is feeling better. 16:41 Reassessment: Patient appears in no apparent distress at this time. Patient and/or ae4 family updated on plan of care and expected duration. Pain level reassessed. Patient denies pain at this time. Patient states feeling better. Patient states symptoms have improved. Vital Signs: 12:59 BP 75 / 57; Pulse 105; Resp 18; Temp 98.3; Pulse Ox 97% ; Weight 63.5 kg; bp 13:25 BP 88 / 52; Pulse 98; Resp 17; Pulse Ox 97% on R/A; ae4 13:53 BP 92 / 46; Pulse 100; Resp 19; Pulse Ox 99% on R/A; ae4 14:08 BP 104 / 60; Pulse 100; Resp 13; Pulse Ox 100% on R/A; ae4 16:42 BP 111 / 71; Pulse 107; Resp 16; Pulse Ox 99% on R/A; ae4 ED Course: 12:41 Patient arrived in ED. ag5 12:41 Unknown, Unknown is Private Physician. ag5 12:46 Wallace Adams MD is Attending Physician. rn 12:54 Ilia Ramirez RN is Primary Nurse. bp 12:55 Triage completed. bp 12:55 Inserted saline lock: 20 gauge in right antecubital area, using aseptic technique. ae4 Blood collected. 13:00 Arm band placed on. bp 13:00 Patient has correct armband on for positive identification. Placed in gown. Bed in low bp position. Call light in reach. Side rails up X2. Adult w/ patient. 13:09 EKG done, by ED staff, reviewed by Wallace Adams MD. ms 15:53 Urine collected: clean catch specimen, cloudy. ms 16:41 No provider procedures requiring assistance completed. IV discontinued, intact, ae4 bleeding controlled, No redness/swelling at site. Pressure dressing applied. Administered Medications: 06:20 Drug: Rocephin - (cefTRIAXone) 1 grams Route: IVPB; Infused Over: 30 mins; Site: right ae4 antecubital; 16:31 Follow up: IV Status: Completed infusion ae4 13:01 Drug: NS 0.9% 1000 ml Route: IV; Rate: 1000 ml; Site: right antecubital; ae4 14:06 Follow up: IV Status: Completed infusion; IV Intake: 1000ml bp 14:06 Drug: NS 0.9% 1000 ml Route: IV; Rate: 1000 ml; Site: right antecubital; bp 16:31 Follow up: IV Status: Completed infusion ae4 Point of Care Testing: Blood Glucose: 12:59 Blood Glucose: 332 mg/dL; bp Ranges: Intake: 14:06 IV: 1000ml; Total: 1000ml. bp Outcome: 15:59 Discharge ordered by . rn 16:41 Discharged to home ambulatory, with family. ae4 16:41 Condition: stable 16:41 Discharge instructions given to patient, Instructed on discharge instructions, follow up and referral plans. medication usage, Demonstrated understanding of instructions, Prescriptions given X 1. 16:42 Patient left the ED. ae4 Signatures: Elisabeth Jean Baptiste ms, Roman, MD MD rn Ilia Ramirez RN RN Claudio England ag5 Miguel A Lundberg RN RN ae4 Corrections: (The following items were deleted from the chart) 13:02 12:54 Acuity: PABLO 3 bp bp 13:02 12:59 BP 75 / 57; Pulse 105bpm; Resp 18bpm; Pulse Ox 97%; 63.5 kg; bp bp
--- NOTE | 2019-05-20 16:01 | EDPHYS ---
Physician Documentation [facility] Name: Paulina Roy Age: 64 yrs Sex: Female : 1955 Arrival Date: 05/20/2019 Time: 12:41 Bed 6 Private MD: Unknown, Unknown ED Physician Wallace Adams HPI: 05/20 12:59 This 64 yrs old Female presents to ER via Wheelchair with complaints of High rn Blood Sugar. 12:59 The patient or guardian reports hyperglycemia. Onset: The symptoms/episode rn began/occurred at an unknown time. Current symptoms: In the emergency department the patient's symptoms are unchanged from the initial presentation. The patient has experienced similar episodes in the past. REports recently admitted for palpitations, put on medication that makes her sleepy. . 13:00 Reports decreased PO intake and appetite, has not been taking diabetic medication as rn prescribed until now that family is observing it, reports fatigue and malaise. No fever, no pain, no sob, no abd pain/vomiting/diarrhea.. Historical: - Allergies: 12:58 No Known Allergies; bp - Home Meds: 12:58 glimepiride 2 mg oral tab 1 tab once daily [Active]; Xigduo XR 5-1,000 mg oral TBph bp [Active]; lisinopril-hydrochlorothiazide 20-12.5 mg oral tab 1 tab once daily [Active]; clonazepam 0.5 mg Oral tab 1 tab 2 times per day [Active]; lovastatin 20 mg Oral tab 1 tab once daily [Active]; atorvastatin 80 mg oral tab 1 tab once daily [Active]; aspirin 81 mg Oral chew 1 tab once daily [Active]; - PMHx: 12:58 Diabetes - NIDDM; Hypertension; High Cholesterol; bp - Immunization history:: Adult Immunizations up to date. - Social history:: Smoking status: Patient/guardian denies using tobacco. - Ebola Screening: : No symptoms or risks identified at this time. - Family history:: not pertinent. - Hospitalizations: : No recent hospitalization is reported. ROS: 13:00 Constitutional: Negative for fever, chills, and weight loss, Eyes: Negative for injury, rn pain, redness, and discharge, ENT: Negative for injury, pain, and discharge, Neck: Negative for injury, pain, and swelling, Cardiovascular: Negative for chest pain, palpitations, and edema, Respiratory: Negative for shortness of breath, cough, wheezing, and pleuritic chest pain, Abdomen/GI: Negative for abdominal pain, nausea, vomiting, diarrhea, and constipation, Back: Negative for injury and pain, : Negative for injury, bleeding, discharge, and swelling, MS/Extremity: Negative for injury and deformity, Skin: Negative for injury, rash, and discoloration, Neuro: Negative for headache, weakness, numbness, tingling, and seizure. Exam: 13:00 Constitutional: This is a well developed, well nourished patient who is awake, alert, rn and in no acute distress. Head/Face: Normocephalic, atraumatic. Eyes: Pupils equal round and reactive to light, extra-ocular motions intact. Lids and lashes normal. Conjunctiva and sclera are non-icteric and not injected. Cornea within normal limits. Periorbital areas with no swelling, redness, or edema. ENT: dry MM Cardiovascular: tachycardic, regular, no murmur Respiratory: Clear bilateral breath sounds Abdomen/GI: soft, non-tender Skin: Warm, dry, no cellulitis MS/ Extremity: Pulses equal, no cyanosis. Neurovascular intact. Full, normal range of motion. Equal circumference. Neuro: Awake and alert, GCS 15, oriented to person, place, time, and situation. Cranial nerves II-XII grossly intact. Motor strength 5/5 in all extremities. Sensory grossly intact. Cerebellar exam normal. Vital Signs: 12:59 BP 75 / 57; Pulse 105; Resp 18; Temp 98.3; Pulse Ox 97% ; Weight 63.5 kg; bp 13:25 BP 88 / 52; Pulse 98; Resp 17; Pulse Ox 97% on R/A; ae4 13:53 BP 92 / 46; Pulse 100; Resp 19; Pulse Ox 99% on R/A; ae4 14:08 BP 104 / 60; Pulse 100; Resp 13; Pulse Ox 100% on R/A; ae4 16:42 BP 111 / 71; Pulse 107; Resp 16; Pulse Ox 99% on R/A; ae4 MDM: 12:46 Patient medically screened. rn 15:57 Differential diagnosis: hyperglycemia, dehydration, UTI. Data reviewed: vital signs, rn nurses notes, lab test result(s), and as a result, I will discharge patient. Counseling: I had a detailed discussion with the patient and/or guardian regarding: the historical points, exam findings, and any diagnostic results supporting the discharge/admit diagnosis, lab results, the need for outpatient follow up, to return to the emergency department if symptoms worsen or persist or if there are any questions or concerns that arise at home. Response to treatment: the patient's symptoms have markedly improved after treatment, and as a result, I will discharge patient. Special discussion: I discussed with the patient/guardian in detail that at this point there is no indication for admission to the hospital. It is understood, however, that if the symptoms persist or worsen the patient needs to return immediately for re-evaluation. ED course: Pt improved, with improved BP. + UTI with pre-renal picture, Given 2 L bolus and rocephin. WIll dc home with abx and hydration, Recommend glucose monitoring and medication compliance. Has appt tomorrow with PCP. . 05/20 12:57 Order name: CBC with Diff; Complete Time: 13:48 rn 05/20 12:57 Order name: Basic Metabolic Panel; Complete Time: 13:48 rn 05/20 12:57 Order name: Urine Microscopic Only rn 05/20 12:57 Order name: Ketone, Serum; Complete Time: 13:48 rn 05/20 12:58 Order name: LFT's; Complete Time: 13:48 rn 05/20 12:58 Order name: Lipase; Complete Time: 13:48 rn 05/20 12:57 Order name: IV Start; Complete Time: 13:10 rn 05/20 12:57 Order name: Urine Dipstick-Ancillary (obtain specimen); Complete Time: 15:54 rn 05/20 13:02 Order name: EKG; Complete Time: 13:03 rn 05/20 15:56 Order name: Urine Dipstick--Ancillary (enter results) eb 05/20 16:22 Order name: Urine Culture EDOR 05/20 12:57 Order name: Glucose Level; Complete Time: 13:01 rn 05/20 13:02 Order name: EKG - Nurse/Tech; Complete Time: 13:10 rn Administered Medications: 06:20 Drug: Rocephin - (cefTRIAXone) 1 grams Route: IVPB; Infused Over: 30 mins; Site: right ae4 antecubital; 16:31 Follow up: IV Status: Completed infusion ae4 13:01 Drug: NS 0.9% 1000 ml Route: IV; Rate: 1000 ml; Site: right antecubital; ae4 14:06 Follow up: IV Status: Completed infusion; IV Intake: 1000ml bp 14:06 Drug: NS 0.9% 1000 ml Route: IV; Rate: 1000 ml; Site: right antecubital; bp 16:31 Follow up: IV Status: Completed infusion ae4 Point of Care Testing: Blood Glucose: 12:59 Blood Glucose: 332 mg/dL; bp Ranges: Critical Glucose Levels:Adult <50 mg/dl or >400 mg/dl <40 mg/dl or >180 mg/dl Disposition: 05/20/19 15:59 Discharged to Home. Impression: Hyperglycemia, unspecified, Dehydration, Urinary tract infection, site not specified. - Condition is Stable. - Discharge Instructions: Dehydration, Adult, Hyperglycemia, Urinary Tract Infection, Adult. - Prescriptions for cefpodoxime 100 mg Oral Tablet - take 2 tablet by ORAL route every 12 hours for 10 days take with food; 40 tablet. - Medication Reconciliation Form, Thank You Letter, Antibiotic Education, Prescription Opioid Use form. - Follow up: Private Physician; When: Tomorrow; Reason: Recheck today's complaints, Re-evaluation by your physician. - Problem is new. - Symptoms have improved. Signatures: Dispatcher [employer] EDMS Wallace Adams MD MD rn Peltier, Brian, RN RN bp Elliott, Andrea, RN RN ae4 Corrections: (The following items were deleted from the chart) 16:42 15:59 05/20/2019 15:59 Discharged to Home. Impression: Hyperglycemia, unspecified; ae4 Dehydration; Urinary tract infection, site not specified. Condition is Stable. Forms are Medication Reconciliation Form, Thank You Letter, Antibiotic Education, Prescription Opioid Use. Follow up: Private Physician; When: Tomorrow; Reason: Recheck today's complaints, Re-evaluation by your physician. Problem is new. Symptoms have improved. rn
[2019-05-20 16:18] LABS: Urine Bacteria >50 /HPF (<20); Urine RBC <5 /HPF (NONE SEEN)
[2019-05-20 16:19] LABS: Urine Culture Reflex Order REFLEXED
[2019-05-20] MEDS ORDERED: CEFTRIAXONE/SWI 1gm 1 GM/10 ML SYR ONE (16:25)
--- NOTE | 2019-05-20 17:38 | EKG ---
Test Date: 2019-05-20 Test Time: 13:08:05 [employer]: MEASUREMENT RESULTS: Intervals: Rate: 114 DE: 144 QRSD: 144 QT: 388 QTc: 534 Peterson: P: 50 DE: 144 QRS: -34 T: 142 INTERPRETIVE STATEMENTS: Sinus tachycardia Left axis deviation Left bundle branch block Abnormal ECG Compared to ECG 05/15/2019 15:17:18 No significant changes Electronically Signed On 05-20-19 17:38:35 CDT by Juan Manuel Arana
[2019-05-20 19:32] VITALS: TEMP 98.3
[2019-05-20 19:46] VITALS: BP 111/71; O2SAT 99
[2019-05-20 20:16] LABS: Urine Blood TRACE (NEG); Urine Glucose 2+ (NEG); Urine Protein NEGATIVE (NEG); Urine Specific Gravity 1.005 (1.005-1.030)
== END 2019-05-20 16:42 | disposition home or self-care (01) ==
LOC: ER 12:39
DX: E86.0 Dehydration (principal); N39.0 Urinary tract infection, site not specified; I10 Essential (primary) hypertension; E78.00 Pure hypercholesterolemia, unspecified; Z79.82 Long term (current) use of aspirin
CPT/HCPCS: 36415; 80048; 80076; 81003; 81015; 82010; 82962; 83690; 85025; 87077; 87086; 87088; 87186; 93005; 96365; 96366; 99284; J0696; J7030